=== PATIENT | female | born 1955 | race Caucasian/White ===

== ENCOUNTER 2019-02-22 11:01 | Outpatient (CLI) | payer MEDICAID, SELFPAY ==
--- NOTE | 2019-02-22 10:54 | DI.RAD_ITS ---
SYMPTOM/DIAGNOSIS: HIP AND KNEE PAIN RIGHT KNEE: There is severe narrowing of the medial femoral tibial joint space and periarticular spurring. There is some flattening of the medial femoral condyle. There is mild varus angulation. There is mild spurring at the articular aspect of the patella and a small joint effusion. IMPRESSION: Severe degenerative changes of the medial femoral tibial joint. RIGHT HIP AND PELVIS: There are no prior comparison exams. The hip joint spaces are well maintained. There is mild bilateral acetabular spurring. No joint space calcifications are seen. The SI joints are unremarkable. IMPRESSION: Mild degenerative changes of both hips.
== END 2019-02-22 11:21 ==
PROVIDERS: PCP Internal Medicine; Visit Provider Orthopaedic Surgery
DX: M25.561 Pain in right knee (principal); M25.551 Pain in right hip; M17.11 Unilateral primary osteoarthritis, right knee; M16.0 Bilateral primary osteoarthritis of hip; M25.461 Effusion, right knee
CPT/HCPCS: 73502; 73560

== ENCOUNTER 2019-03-03 10:38 | Outpatient (CLI) | payer MEDICAID, SELFPAY ==
--- NOTE | 2019-03-03 09:54 | W.PREOPHP ---
Assessment and Plan (1) Osteoarthritis: Current visit: No Status: Chronic Plan: Educated patient on surgery covering surgical technique via the use of prosthetic models, recovery process, benefits and risks including but not limited to risk of infection, blood clot, numbness, tingling, damage to soft tissue/blood vessels/nerves in detail. After discussion patient gives verbal understanding of risks and elects to proceed with scheduling surgery. Patient had opportunity to have questions answered to their satisfaction. They will contact office if issues arise. Patient will continue to be scheduled for right total knee replacement with Dr. Brandon. Qualifiers: Laterality: right Osteoarthritis location: knee Osteoarthritis type: unspecified Qualified Code(s): M17.11 - Unilateral primary osteoarthritis, right knee History of Present Illness Narrative: Ms. Gusman is a 63-year-old female presents clinic for preoperative visit for scheduled right total knee replacement with Dr. Brandon on 03/06/2019. Unfortunately, patient is a poor historian and describes her past medical issues with superfluous dramatic details. Patient reports she has been dealing with right knee pain that occurs diffusely around the knee and occasionally underneath her kneecap for many years. Patient decided to seek medical treatment for her knee complaints when she began to develop increased giving out sensation. Patient reports her knee gives out several times daily which cause her fall to the ground. Giving out sensation that occurs with patient walking on flat ground, with twisting motions and when trying to ascend stairs. Following giving out and fall patient reports increased knee discomfort. Due to knee instability patient now has to sit to do dishes and is unable to have any prolonged standing or walking. Patient is trying to manage discomfort with taking Tylenol periodically which provides some pain relief. In addition she reports frequently icing and applying heat to the knee which helps significantly. However, due to the continued instability and discomfort patient sought orthopedic consult. Patient was seen in orthopedic clinic by Dr. Brandon on 02/22/2019 at which time x-rays revealed [id number] articulation and osteophyte formation predominantly along the medial joint aspect. Patient was also noted to have decreased patellofemoral joint space. Due to patient's continued knee instability Dr. Brandon recommend proceeding with surgical intervention. Patient was agreeable and decided to proceed with total knee replacement. Pertinent Surgical Information Patient is a poor historian and is unable to provide further details for numerous reported diagnoses. She does describe several stories which have a dramatic flare to her narration. Patient's chart shows diagnosis of thyroid disorder without additional details provided. Reviewed patient's current medications which do not show thyroid replacement or suppressant drugs. On questioning of thyroid disorder patient states she is continuing to undergo work-up. 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 Patient also states history of a large brain tumor which is treated nonoperatively and without medication. Patient states tumor does not cause her to have any defect and that she sees a neurologist but is unable to recall name or practice. When patient presented to day surgery nurse her daughter endorsed story of brain tumor that is managed conservatively. Again no evidence of diagnosis is present in patient's chart. When further questions are asked regarding patient's numerous surgeries and patient reported diagnosis of brain tumor she is unable to provide additional details. While at day surgery patient and her daughter also stated patient suffered heart attack in 1994 managed with placement of two stent at [facility]. As per patient's daughter she sees a senior commercial loan officer in [place], [place]. Patient has undergone surgeries since reported heart attack in 1994 without any complications. When asked by nurse at Day Surgery patient denies any recurrent chest pain following 1994 but does have a prescription for nitroglycerin if needed. At today's visit patient displays no symptoms of cardiac or pulmonary issues nor does she have any pertinent review of systems. However, due to patient's previous history recommend anesthesia see patient before she leaves the hospital today to determine if they require additional work-up/cardiology notes. Denies past medical history of: stroke, recent angina, COPD, sleep apnea, liver issues, hepatitis, gastrointestinal issues, ulcers, bleeding disorders, anxiety, depression, diabetes, autoimmune disorders Denies prior complications from surgery or anesthesia. Review of Systems Constitutional Denies fever(s), Denies frequent falls and Denies headache(s) Eyes Denies change in vision ENT Denies dizziness, Denies ear discharge, Denies headache(s), Denies epistaxis, Denies nasal discharge and Denies sore throat Cardiovascular Denies chest pain, Denies rapid heart rate, Denies irregular heart rhythm, Denies dyspnea, Denies dyspnea on exertion and Denies slow heart rate Respiratory Denies cough, Denies dyspnea, Denies dyspnea on exertion and Denies wheezing Gastrointestinal Denies abdominal pain, Denies melena, Denies hematochezia, Denies constipation, Denies diarrhea, Denies nausea and Denies vomiting Genitourinary Denies hematuria, Denies dysuria and Denies urinary urgency Musculoskeletal Reports as per HPI, Denies numbness and Denies tingling Neurologic Denies dizziness, Denies frequent falls, Denies headache(s), Denies numbness and Denies tingling Psychiatric Denies anxiety and Denies depression Allergic/Immunologic Denies wheezing PFSH Family History Other CAD (coronary artery disease) Social History Smoking/Tobacco Use Status: Never Alcohol Intake: never Drug use: Never Meds Home Medications Medication Instructions Recorded Confirmed Type albuterol sulfate [Ventolin HFA] 2 puff INHALATION .Q4-6H PRN PRN 03/03/19 03/03/19 History amlodipine 5 mg PO DAILY 03/03/19 03/03/19 History budesonide 0.5 mg INHALATION DAILY PRN 03/03/19 03/03/19 History docusate sodium [Colace] 100 mg PO DAILY 03/03/19 03/03/19 History estradiol [Estrace] 1 g VAGINAL .3 TIMES A WEEK 03/03/19 03/03/19 History hydrocodone-acetaminophen [Alba] 1 tab PO TID 03/03/19 03/03/19 History insulin glargine [Basaglar KwikPen 22 unit SUBCUT DAILY 03/03/19 03/03/19 History U-100 Insulin] linagliptin [Tradjenta] 5 mg PO DAILY 03/03/19 03/03/19 History lisinopril 10 mg PO DAILY 03/03/19 03/03/19 History metoprolol tartrate 50 mg PO DAILY 03/03/19 03/03/19 History pantoprazole [Protonix] 40 mg PO DAILY 03/03/19 03/03/19 History rosuvastatin [Crestor] 40 mg PO DAILY 03/03/19 03/03/19 History sumatriptan succinate 100 mg PO ONCE PRN 03/03/19 03/03/19 History topiramate [Topamax] 25 mg PO BID 03/03/19 03/03/19 History Allergies Allergy/AdvReac Type Severity Reaction Status Date / Time Penicillins Allergy Intermediate Verified 03/03/19 11:02 Sulfa (Sulfonamide Allergy Intermediate Verified 03/03/19 11:02 Antibiotics) tramadol Allergy Intermediate chest Verified 03/03/19 11:02 tightness adhesive tape Allergy Verified 03/03/19 11:02 cefuroxime [From Ceftin] Allergy Verified 03/03/19 11:02 cephalexin [From Keflex] Allergy Skin Rash Verified 03/03/19 11:02 whole body Latex, Natural Rubber Allergy Verified 03/03/19 11:02 metoprolol [From Toprol XL] Allergy Verified 03/03/19 11:02 nitrofurantoin Allergy Verified 03/03/19 11:02 [From Macrodantin] sulfamethoxazole Allergy Verified 03/03/19 11:02 [From Bactrim] trimethoprim [From Bactrim] Allergy Verified 03/03/19 11:02 morphine AdvReac Intermediate vomiting Verified 03/03/19 11:02 cat hair Allergy Uncoded 03/03/19 11:02 Exam Const General: cooperative and no acute distress HENMT Head: normal to inspection and normocephalic Ears: external ears normal General nose exam: external nose normal and no nasal discharge Face and sinus: face symmetric Mouth: oral mucosae normal, lip normal, tongue normal and moist mucous membranes Teeth and gingiva: other (no teeth noted) Throat: posterior oropharynx normal Eyes General: appearance normal, both eyes and all related structures Pupils: PERRL EOM: EOM intact bilaterally Neck Neck: trachea midline Carotids: normal carotid upstroke Lymphatic: no lymphadenopathy noted Resp Effort & Inspection: normal respiratory effort and able to speak in complete sentences Auscultation: clear to auscultation bilaterally, no rales, no rhonchi and no wheezes Cardio Heart Sounds: S1 normal, S2 normal and no murmurs Pulses: radial pulses present bilaterally GI Palpation: soft, no hepatosplenomegaly and nontender Auscultation: normal bowel sounds Skin General skin exam: no rashes or lesions noted Extrem Other: Right knee examination: Skin is intact without signs of erythema, calor, lesions or rash. Tenderness to palpation significantly along medial joint line and along borders of patella.
[2019-03-03 13:15] LABS: Abs Immature Grans 0.02 k/cumm (0.0-0.09); Absolute Basophil Count 0.02 k/cumm (0.0-0.2); Absolute Eosinophil Count 0.24 k/cumm (0.0-0.7); Absolute Lymphocyte Count 2.16 k/cumm (1.2-3.4); Absolute Monocyte Count 0.41 k/cumm (0.11-0.7); Absolute Neutrophil Count 5.86 k/cumm (1.2-6.7); Basophils % 0.2; Eosinophils % 2.8; HCT 35.8 % (36.0-46.0); HGB 11.5 g/dL (12.0-15.5); Immature Grans % 0.2; Lymphocytes % 24.8; Mean Corp. HGB Concentration 32.1 g/dL (32.0-36.0); Mean Corpuscular Hemoglobin 28.3 pg (27.0-33.0); Mean Platelet Volume 12.1 fL (8.0-11.0); Monocytes % 4.7; Neutrophils % 67.3; Platelet Count 192 x1000/uL (130-400); RBC 4.07 m/cumm (4.00-5.20); RBC Distribution Width 15.3 % (11.7-14.6); White Blood Cell Count 8.71 k/cumm (4.4-10.8)
[2019-03-03 14:16] LABS: ALT 20 U/L (12-78); AST 19 U/L (15-37); Albumin 3.9 g/dL (3.4-5.0); Alkaline Phosphatase 106 U/L (46-116); Anion Gap 11.3 mmol/L (3-11); BUN 27 mg/dL (7-18); Bilirubin, Total 0.3 mg/dL (0.2-1.0); CO2 24.7 mmol/L (21.0-32.0); CREATININE 1.49 mg/dL (0.55-1.02); Calcium 9.1 mg/dL (8.5-10.1); Chloride 104 mmol/L (98-107); Estimated GFR 35.12 (mL/min/1.73m2); Glucose 144 mg/dL (70-100); Potassium 4.5 mmol/L (3.5-5.1); Sodium 140 mmol/L (136-145); Total Protein 7.7 g/dL (6.4-8.2)
== END 2019-03-03 10:58 ==
PROVIDERS: PCP Internal Medicine; Visit Provider Orthopaedic Surgery
DX: M25.561 Pain in right knee (principal); M17.11 Unilateral primary osteoarthritis, right knee; Z01.812 Encounter for preprocedural laboratory examination; Z01.818 Encounter for other preprocedural examination
CPT/HCPCS: 36415; 80053; NC; 85025

== ENCOUNTER 2019-03-06 05:56 | Inpatient (IN) | payer MEDICAID, SELFPAY ==
[2019-03-06] VITALS (17 sets, daily range): BP systolic 72–149; BP diastolic 41–76; PULSE 54–77; RESP 13–22; TEMP 35.8–36.6; O2SAT 91–99
[2019-03-06] MEDS: Lactated Ringers 1,000 ML 80 ML IV ×2 (07:02→10:43)
[2019-03-06] MEDS: Bupivacaine 0.25% Pres-Free 30 ML VIAL (07:18)
[2019-03-06] MEDS: ceFAZolin 2 GM/50 ML BAG IVPB (07:35)
[2019-03-06] MEDS: Hydrogen Peroxide 3% 480 ML BTL (08:07)
[2019-03-06] MEDS: ePHEDrine 50 MG/ML VIAL (10:07)
--- NOTE | 2019-03-06 10:26 | DI.RAD_ITS ---
SYMPTOM/DIAGNOSIS: S/P TOTAL KNEE, CHECK COMPONENTS RIGHT KNEE: Two views were obtained and show a total knee joint replacement in position. The components appear well seated. No other significant bony abnormality is seen.
[2019-03-06] MEDS: oxyCODONE-CR 10 MG TABCR PO (12:11)
--- NOTE | 2019-03-06 13:47 | IN_ITS ---
Date of service: 03/06/19 Time of Service: 13:05 PT Notes Inpatient Physical Therapy Evaluation Date: March 06, 2019 Referring Doctor: Dr. Brandon PT Orders: PT CONSULT: ?Mobilize post-op (R) TKR. Get OOB ambulating in room this afternoon. Precautions: WBAT (R) LE Diagnosis: Post-op (R) TKR 03/06/2019 PMHX: Thyroid dysfunction, h/o brain tumor per pt report, NV 1994 s/p stent x2, DM, PTSD, GERD, CKD, HTN, hyperlipidemia Social History/Home Situation: Lives in mobile home, 3 [address] with rail Current Functional Limitations: Need for assistance with all transfers and ambulation task performance using FWW Equipment Owned/DME: Walkers, Cane Subjective: Pt states that she was expecting PT and is ready to begin therapy. Upon arrival, pt denies pain, discomfort, or lightheadedness. Pt admits nausea and vomiting with past surgeries but is not currently experiencing those sxs. Pt is aware that her (R) LE feels heavy and weak compared to (L) LE and reports some paresthesia into (R) foot. Objective: General Observation: Upon PT arrival, pt was lying in bed while watching TV. Pt was pleasant and highly motivated to begin functional activity. (R) knee immobilizer over Henley dressing. Tobias catheter in place. IV in RUE. Mental Status: A&O x3. Pain: 0/10 at beginning, 1-2/10 at end of session Vital Signs: BP 131/75, HR 67 bpm, 97% SpO2 ROM: Right Upper Extremity: WNL Left Upper Extremity: WNL Right Lower Extremity: 0 deg extension with immobilizer over Henley dressing Left Lower Extremity: WNL Strength: Right Upper Extremity: WNL Left Upper Extremity: WNL Right Lower Extremity: Functionally, patient is able to perform active SLR x 10 with knee immobilizer and Henley wrap in place. Hip flexors: 3+/5. Ankle DF/PF: 5/5 Left Lower Extremity: Hip flexors: 5/5, Hip abd: 5:5, Knee flex/ext: 4+5, Ankle DF/PF: 5/5 Sensation: Intact distally Bed Mobility/Transfers: Supine to sit: Supervision Sit to supine: Supervision Sit to stand: CGA Stand to sit: CGA Bed to chair: CGA, WW Chair to bed: Not assessed at this session Gait: Pt is able to ambulate 6? exhibiting step-to gait pattern with 4WW, CGA, and IV pole management. Pt reported 1-2/10 along (R) LE after gait but resolved with rest. Denies nausea and headache. Balance: Static Sitting: NL Dynamic Sitting: Good Static Standing: Fair Dynamic Standing: Fair Special Tests: Mobility Limitations Standardized Measure [facility] AM-PAC 6 clicks Basic Mobility Inpatient Short Form: Raw Score: 15 CMS Score: 56.46% deficit Informed Consent/Education: Patient instructed in purpose of PT consult and plan of care. Pt was trained and instructed with seated level room exercises to be performed throughout the rest of today in order to minimize pain, swelling, and strength deficit: (R) straight leg raise x10, (R) quad sets x10, and (R) ankle pumping x20. Assessment: Patient is a 63 year old female referred to physical therapy services status-post (R) TKR 03/06/2019. Patient presents with clinical signs and symptoms consistent with admitting diagnosis and post-op status as demonstrated by the following impairment level findings: decreased (R) LE strength, impaired static and dynamic standing balance, impaired endurance, ROM limitations of (R) hip and knee joints . Impairments are contributing to the following functional limitations: mobility limitations, gait instability, muscular weakness, and impaired neuromuscular control of (R) LE, , and unable to negotiate stairs. 56.46% deficit of AMPAC score. Patient is assessed as a Moderate 45258 complexity based on the following: History: Involved PMH including thyroid transfer, brain tumor unconfirmed by neuro at this date, NV s/p stent x2, D, PTSD, GERD, CKD, HTN, and hyperlipidemia. Examination: See above impairments and functional limitations. Presentation: Evolving Decision Makin Moderate Complexity Goals: Goals x1 week 1. Supine-Sit Independent 2. Sit-Supine Independent 3. Sit-Stand Independent 4. Stand-Sit Independent 5. Bed-Chair Independent with use of FWW 6. Chair-Bed Independent with use of FWW 7. Gait: Independent on level surface with use of least restrictive device for at least 200 feet without report of pain. 8. Stairs: Independent stair negotiation while holding 1 rail for at least 3 steps without report of pain. 9. Independent with home exercise program 10. Balance: Good static and dynamic standing balance Plan of Care/Treatment Plan: 1-2x/day, 7 days/week x 1 week. Initiate Physical Therapy intervention for strengthening, bed mobility, transfers, gait, stairs, balance training, use of assistive device. DISCHARGE RECOMMENDATIONS: Pt will benefit from outpatient or home health PT services following inpatient d/c in order to regain independent prior level of function, assess home safely, implement functional maintenance program for strengthening and fall reduction. No equipment needs anticipated, as patient owns a FWW. TREATMENT CODE/TIME: 1:05pm? 1:30pm [id number] x1, [id number] x1
[2019-03-06] MEDS: POTASSIUM CHLORIDE/0.9% NACL 1,000 ML 125 MEQ IV ×2 (14:01→22:13)
[2019-03-06] MEDS: Docusate Sodium 100 MG CAP PO ×2 (14:41→19:28)
[2019-03-06] MEDS: ceFAZolin 1 GM/50 ML BAG IVPB ×2 (14:42→19:26)
[2019-03-06] MEDS: Normal Saline Flush 10 ML SYR IV ×2 (14:43→19:26)
[2019-03-06] MEDS: HYDROmorphone 2 MG/ML VIAL 1 MG IVP (14:44)
[2019-03-06] MEDS: Ketorolac 30 MG/ML VIAL IVP ×2 (15:16→19:27)
--- NOTE | 2019-03-06 16:18 | ROE_ITS ---
DATE OF PROCEDURE: March 06, 2019 PREOPERATIVE DIAGNOSIS: Osteoarthritis, right knee. POSTOPERATIVE DIAGNOSIS: Same. PROCEDURE: Right total knee arthroplasty. COMPONENTS USED: 1. Size 2 femoral component, posterior cruciate-retaining. 2. Size 2 tibial component. 3. 32 mm tri-pronged patella. 4. Size 2, 12.5 posterior cruciate-retaining polyethylene insert. ANESTHESIA: General with a femoral nerve block, Lucia Durand CRNA SURGEON: Tristan Brandon M.D. PRODUCT TESTER: Mac Echeverria INDICATIONS: This is a 63-year-old white female with a several year history of pain in her right kne e. Over the last year her pain has resulted in multiple giving way episodes, at least one a day wher e she has fallen to the ground. X-rays confirmed osteoarthritis of the knee. Total knee replacement was recommended to alleviate her pain, restore stability to her knee and to prevent further giving w ay episodes. The risks and complications of the procedure were explained to the patient in detail pr eoperatively. PROCEDURE: The patient was taken to the Operating Room on 03/06/19. She was placed supine on the oper ating table. A femoral nerve block was administered and then a general anesthetic was administered. A proximal tourniquet was applied to the right thigh and the right lower extremity was prepped from toes to tourniquet and draped free in the usual sterile fashion. Under proximal tourniquet control, an anterior midline incision was made beginning at the tibial tube rcle and extending proximal to the patella about four inches. The incision was carried down to the f ascia. A medial parapatellar capsular incision was made and was extended proximally and longitudina lly in line with the quad tendon. A complete medial subperiosteal release was performed to help alfredo ect the varus deformity. The patella was everted and the knee was hyperflexed. Medial and lateral m eniscectomies were performed and the anterior cruciate ligament was excised. The posterior cruciate ligament was recessed. The distal femur was then resected using intramedullary alignment guides and jigs. She was found to require a size 2 femoral component. Holes for the lugs of the femoral compon ent were then drilled using the trial component. The proximal tibia was resected using extramedullar y alignment guides and jigs. A size 2 tibial component was felt to be the proper size. The tibial t rial was pinned into place and then the keel for the tibial component was then reamed out in proper r otation alignment. Finally the patella was resected using the patellar resection guide. 15 mm thick ness of the patella was left for implantation of a patellar component. Using the drill guide for the tri-pronged patella, 32 mm, the holes were drilled in proper rotation alignment. The proximal tibia was prepared for cementing with pulse irrigation lavage of saline solution and dry ing with peroxide-soaked strip sponges. One batch of gentamicin-impregnated methylmethacrylate was v acuum-mixed and hand-packed onto the prepared tibia. Cement was then placed on the undersurface of t he tibial component and the tibial component was impacted into place with the impactor and mallet. T he tibial component was further pressurized using the trial components and extending the knee. Exces s cement was trimmed from the margins of the tibial component using a plastic cement removal tool whi le the cement was still soft. When the first batch of methylmethacrylate had cured, the trial compon ents were removed. The distal femur and patella were then prepared for cementing with pulse irrigati on lavage of saline solution and drying with peroxide-soaked strip sponges. Another batch of gentami ravinder-impregnated methylmethacrylate was vacuum-mixed and hand-packed onto the prepared femur and brennan la. Cement was then placed on the posterior surfaces of the femoral component and the patellar compo nent. The femoral component was impacted into place with the impactor and mallet and pressurized usi ng the tibial insert and extending the knee. The patellar component was inserted and pressurized usi ng the patellar clamp. Excess cement was trimmed from the margins of the patella and femoral compone nts using the plastic cement removal tool while the cement was still soft. When the second batch of methylmethacrylate had cured, the trial insert was removed. The posterior recesses were checked. An y bone or cement debris was removed at this point. Trial reduction showed a 12.5 thick insert provid ed the best stability through flexion while still allowing full extension of the knee. The actual co mponent, 12.5, size 2 posterior cruciate-retaining rotating platform was inserted into the tibial com ponent and then reduced onto the femoral condyles. Patellar tracking was checked using the rule-of-n o-thumb. The patella tracked anatomically. The posterior capsule was infiltrated with 0.5% Marcaine with an epinephrine solution and this was then carried into the anterior capsule. The subcutaneous tissue was infiltrated with 0.5% Marcaine with an epinephrine solution for postoperative analgesia. Betadine and saline solution was instilled into the knee and allowed to sit for sixty seconds before suctioning. The knee was flexed over soft goods and closure was begun. The medial parapatellar capsular incision and the incision in the quadriceps tendon were repaired wit h interrupted [id number] sutures of #1 Vicryl suture material. The subcu was approximated with interrupted #2-0 Vicryl sutures and the skin edges were approximated with skin rigo. Sterile dres sings were applied followed by a long-leg Henley compressive dressing. The tourniquet was released at this point and a knee immobilizer splint was placed over the compression dressing to maintain the kn ee in extension. The patient received one gram of Tranexamic acid prior to tourniquet inflation and received a second gram of Tranexamic acid IV after the tourniquet was deflated. The patient's anesthesia was reversed without complications. She was discharged to recovery room in good condition.
--- NOTE | 2019-03-06 17:40 | PHARADMIT ---
Admission Pharmacy Clinical Review recommended dose change of ketorolac to 15mg per dose instead of 30mg. MD decided to keep the 30mg dose Code Status Full Code Current Weight 79 kg Renally Cleared and Narrow Therapeutic Index Meds QTc Value / Action Taken BP Control, Fever Electrolytes reviewed DVT Prophylaxis Opiate Usage / Scheduled Bowel Regimen Ordered Plt/SCr for Heparin / Enoxaparin INR for Warfarin H/H stable, WBC/Bands Antibiotic appropriateness Cultures and Sensitivities Surgical ABX d/c within 24 hr DM control / Insulin Dosing Heart Failure (Check EF%) (KIRAN's, B-Block, Diuretics) IV to PO Switch Home Meds Reviewed Home Meds Not Ordered Comments
[2019-03-06] MEDS: Topiramate 25 MG TAB PO (19:27)
[2019-03-06] MEDS: ROSUVASTATIN 20 MG TAB 40 MG PO (19:27)
[2019-03-06] MEDS: Insulin Glargine 300 UNITS/3 ML PEN 22 UNITS SC (22:06)
[2019-03-07] VITALS (8 sets, daily range): BP systolic 96–139; BP diastolic 54–80; PULSE 65–72; RESP 16–20; TEMP 36.5–37; O2SAT 97–99
[2019-03-07] MEDS: oxyCODONE-CR 10 MG TABCR PO ×3 (00:31→23:38)
[2019-03-07] MEDS: Normal Saline Flush 10 ML SYR IV (01:48)
[2019-03-07] MEDS: Ketorolac 30 MG/ML VIAL IVP ×4 (01:48→20:16)
[2019-03-07] MEDS: ceFAZolin 1 GM/50 ML BAG IVPB ×2 (01:49→07:30)
[2019-03-07] MEDS: POTASSIUM CHLORIDE/0.9% NACL 1,000 ML 125 MEQ IV (06:31)
[2019-03-07 07:02] LABS: HCT 30.8 % (36.0-46.0); HGB 9.7 g/dL (12.0-15.5); Mean Corp. HGB Concentration 31.5 g/dL (32.0-36.0); Mean Corpuscular Hemoglobin 28.1 pg (27.0-33.0); Mean Corpuscular Volume 89.3 fL (80-95); Mean Platelet Volume 12.1 fL (8.0-11.0); Platelet Count 140 x1000/uL (130-400); RBC 3.45 m/cumm (4.00-5.20); RBC Distribution Width 15.4 % (11.7-14.6); White Blood Cell Count 10.09 k/cumm (4.4-10.8)
[2019-03-07] MEDS: Pantoprazole 40 MG TABCR PO (07:35)
[2019-03-07] MEDS: Topiramate 25 MG TAB PO ×2 (07:35→20:17)
[2019-03-07] MEDS: Lisinopril 10 MG TAB PO (07:35)
[2019-03-07] MEDS: Docusate Sodium 100 MG CAP PO ×3 (07:35→20:17)
[2019-03-07] MEDS: Metoprolol 50 MG TAB PO (07:36)
[2019-03-07] MEDS: amLODIPine 5 MG TAB PO (07:36)
[2019-03-07] MEDS: Normal Saline Flush 10 ML SYR (08:04)
--- NOTE | 2019-03-07 08:12 | PDOC.CMIN ---
- If Service Date Differs Date of service: 03/07/19 Time of Service: 08:12 Care Management Initial Assess REASON FOR HOSPITALIZATION:: Right total knee arthroplasty PAST MEDICAL HISTORY/PAST SURGICAL HISTORY:: Thyroid disorder, brain tumor, heart attack with 2 stents placed at [facility] in 1994, chronic kidney disease, hyperlipidemia, anemia, asthma, DM, hypertension, obesity,PTSD PREVIOUS FUNCTIONAL STATUS/SOCIAL/FAMILY SUPPORTS:: Mirna lives in a mobile home in [place], [place] with her boyfriend Wilfredo Walker. She has been disabled for a very long time from an accident and receives welfare, and social security. She has 3 steps to get into the home. Her daughter Marli and boyfriend Wilfredo will help with care upon discharge.She is independent with ADLs. CURRENT FUNCTIONAL STATUS:: Mirna was sitting up in bed when CM came to visit. She was guarded in her responses to questions. Mirna states that she has plenty of help and will get PT in either [facility] or some other outpatient facility. Her boyfriend or other friend or relative will provide transportation. ADVANCE DIRECTIVES:: None on file at [facility] Has patient been provided with information about the portal?: No (not interested) Did the patient sign up for the portal?: No CODE STATUS:: Full Code INSURANCE COVERAGE / FINANCIAL ISSUES:: [employer] [place], [place] CURRENT HOME/COMMUNITY SERVICES/EQUIPMENT:: None in use, although Mirna does have 6 walkers at home! PRIMARY CARE PHYSICIAN:: Daryl Key POTENTIAL DISCHARGE NEEDS:: Mirna will need PT and folow up with her orthopedic surgeon and PCP and discharge plan of care. PATIENT/FAMILY EDUCATION NEEDS:: Discharge plan, limitations, follow up plan of care, Ask Me Three. TRANSPORTATION:: Via private automobile with friends or family when ready. PLAN:: Mirna is receiving PT and scheduled po medicine for pain control. She will likely be discharged home with outpatient PT. CM will continue to provide support to patient, family, care team and discharge plan of care.
--- NOTE | 2019-03-07 08:19 | INITIAL_ITS ---
- If Service Date Differs Date of service: 03/07/19 Time of Service: 08:12 Care Management Initial Assess REASON FOR HOSPITALIZATION:: Right total knee arthroplasty PAST MEDICAL HISTORY/PAST SURGICAL HISTORY:: Thyroid disorder, brain tumor, heart attack with 2 stents placed at [facility] in 1994, chronic kidney disease, hyperlipidemia, anemia, asthma, DM, hypertension, obesity,PTSD PREVIOUS FUNCTIONAL STATUS/SOCIAL/FAMILY SUPPORTS:: Mirna lives in a mobile home in [place], [place] with her boyfriend Wilfredo Walker. She has been disabled for a very long time from an accident and receives welfare, and social security. She has 3 steps to get into the home. Her daughter Marli and boyfriend Wilfredo will help with care upon discharge.She is independent with ADLs. CURRENT FUNCTIONAL STATUS:: Mirna was sitting up in bed when CM came to visit. She was guarded in her responses to questions. Mirna states that she has plenty of help and will get PT in either [place] or some other outpatient facility. Her boyfriend or other friend or relative will provide transportation. ADVANCE DIRECTIVES:: None on file at [facility] Has patient been provided with information about the portal?: No (not interested) Did the patient sign up for the portal?: No CODE STATUS:: Full Code INSURANCE COVERAGE / FINANCIAL ISSUES:: [employer] [place], [place] CURRENT HOME/COMMUNITY SERVICES/EQUIPMENT:: None in use, although Mirna does have 6 walkers at home! PRIMARY CARE PHYSICIAN:: Daryl Key POTENTIAL DISCHARGE NEEDS:: Mirna will need PT and folow up with her orthopedic surgeon and PCP and discharge plan of care. PATIENT/FAMILY EDUCATION NEEDS:: Discharge plan, limitations, follow up plan of care, Ask Me Three. TRANSPORTATION:: Via private automobile with friends or family when ready. PLAN:: Mirna is receiving PT and scheduled po medicine for pain control. She will likely be discharged home with outpatient PT. CM will continue to provide support to patient, family, care team and discharge plan of care.
--- NOTE | 2019-03-07 08:30 | PT.INTREAT ---
Date of service: 03/07/19 Time of Service: 08:30 PT Notes Inpatient Physical Therapy Treatment Note [facility] Date: 03/07/19 PRECAUTIONS: WBAT on R SUBJECTIVE: Mirna states that she is not having any pain this morning. OBJECTIVE: PAIN: No c/o pain BED MOBILITY/TRANSFERS Supine-sit: I Sit-stand: SBA in a.m.; S in p.m. Stand-sit: SBA in a.m.; S in p.m. GAIT Assistive Device: FWW Weight bearing: WBAT on R Assist: SBA Distance: 175' in both a.m. and p.m. THEREX: Patient completed a LE strengthening and stabilization program, in a seated position in a.m. and a supine position in p.m., as per flow sheet. She was able to perform active SLR x10 without Henley dressing or K.I. in place. Patient's R knee AAROM is -5-91 degrees. STAIRS: Up/down 3x4 and 2x6 using 1 rail/SPC and a step-to pattern with CGA. Patient requires cueing for improved safety awareness and technique for safety. REMOVAL OF HENLEY: Incision area clean, dry, free of abnormal redness and blistering. 25 rigo intact. Replaced with Xeroform gauze, 4x4 gauze, tape, thigh-high PAULINA stocking. ASSESSMENT: Patient tolerated sessions well with minimal complaint of discomfort in posterior R knee. She was able to tolerate a progression in gait distance with FWW support and SBA utilizing step-through pattern. She would benefit from continued gait and transfer training as well as strengthening for improved mobility. PLAN: Continue with PT's POC TREATMENT CODE/TIME: Session 1: 20 minutes; 68621 Session 2: 35 minutes; [id number], [id number]
[2019-03-07] MEDS: Enoxaparin 30 MG/0.3 ML SYR SC (09:37)
--- NOTE | 2019-03-07 13:51 | W.PM.PROGNOT ---
Date of Service Date of service: 03/07/19 Time of Service: 13:51 Assessment and Plan (1) Status post total right knee replacement: Current visit: Yes Status: Acute Assessment: Stable postop day #1 right total knee replacement. She has not started to bend her knee yet and I do not know what her quad control is so far. I think it might be a little premature to send her home today. Plan: We will DC her IV fluids. We will have physical therapy remove her Henley dressing and start some active flexion this afternoon. We will place a long-leg Emir stocking on the right. We will start using a Cryo/Cuff to the right knee 4 times a day for an hour each time. If she does well tonight and tomorrow morning would send her home. Subjective Interval history since last seen: She feels really really good. She wants to know when she can go home. Pain is minimal in her right knee. She has not had to take any additional narcotic injections. Exam Narrative Exam Narrative: She is afebrile vital signs are stable. She is eating and drinking well. Hemoglobin is 9.7 g this morning. Her Tobias has been DC a few hours ago. She has not voided yet. She was able to transfer without any significant assist. She walked all around the second floor nursing unit. She has good active motion of her right foot and ankle and toes. She has good sensation and circulation to her right toes. Objective Objective Clinical Data: Abnormal lab results 03/07/19 Range/Units 06:30 RBC 3.45 L (4.00-5.20) m/cumm Hgb 9.7 L (12.0-15.5) g/dL Hct 30.8 L (36.0-46.0) % MCHC 31.5 L (32.0-36.0) g/dL RDW 15.4 H (11.7-14.6) % MPV 12.1 H (8.0-11.0) fL Vital Signs Temperature 36.9 C 03/07/19 11:37 Temperature Source Tympanic 03/07/19 11:37 Pulse 65 03/07/19 11:37 Pulse Rhythm Regular 03/07/19 07:21 Respiratory Rate 18 03/07/19 11:37 Respiratory Effort Non-Labored 03/07/19 07:21 Respiratory Depth Normal 03/07/19 07:21 Respiratory Pattern Normal 03/07/19 07:21 Blood Pressure 114/58 L 03/07/19 11:37 Pulse Oximetry 97 03/07/19 11:37 Respiratory End-tidal CO2 34 03/06/19 10:44 Oxygen Delivery Method Room Air 03/07/19 11:37 Oxygen Flow Rate 0 03/07/19 11:37 Pain Level 5 03/07/19 13:43 Comment 03/07/19 03:38 Intake & Output 03/06/19 03/07/19 03/07/19 23:59 11:59 23:59 Intake Total 1920 / 3017.333 2276.667 / 2756.667 480 / 2756.667 Output Total 700 / 1200 1650 / 1650 Balance 1220 / 1817.333 626.667 / 1106.667 480 / 1106.667 Intake: IV 1330 / 2427.333 1436.667 / 1436.667 Oral 590 / 590 840 / 1320 480 / 1320 Output: Urine 700 / 1200 1650 / 1650 Other: Urine Color Pale Yellow Yellow Urine Appearance Clear Clear Laboratory Results WBC 10.09 k/cumm (4.4-10.8) 03/07/19 06:30 RBC 3.45 m/cumm (4.00-5.20) L 03/07/19 06:30 Hgb 9.7 g/dL (12.0-15.5) L 03/07/19 06:30 Hct 30.8 % (36.0-46.0) L 03/07/19 06:30 MCV 89.3 fL (80-95) 03/07/19 06:30 MCH 28.1 pg (27.0-33.0) 03/07/19 06:30 MCHC 31.5 g/dL (32.0-36.0) L 03/07/19 06:30 RDW 15.4 % (11.7-14.6) H 03/07/19 06:30 Plt Count 140 x1000/uL (130-400) 03/07/19 06:30 MPV 12.1 fL (8.0-11.0) H 03/07/19 06:30
[2019-03-07] MEDS: ROSUVASTATIN 20 MG TAB 40 MG PO (20:16)
[2019-03-07] MEDS: Insulin Glargine 300 UNITS/3 ML PEN 22 UNITS SC (22:16)
[2019-03-08] MEDS: Ketorolac 30 MG/ML VIAL IVP (01:36)
[2019-03-08 04:03] VITALS: BP 99/64; PULSE 71; RESP 18; TEMP 37; O2SAT 95
[2019-03-08 06:57] LABS: HCT 30.1 % (36.0-46.0); HGB 9.4 g/dL (12.0-15.5); Mean Corp. HGB Concentration 31.2 g/dL (32.0-36.0); Mean Corpuscular Hemoglobin 27.9 pg (27.0-33.0); Mean Corpuscular Volume 89.3 fL (80-95); Mean Platelet Volume 12.3 fL (8.0-11.0); Platelet Count 142 x1000/uL (130-400); RBC 3.37 m/cumm (4.00-5.20); RBC Distribution Width 15.6 % (11.7-14.6); White Blood Cell Count 10.31 k/cumm (4.4-10.8)
[2019-03-08 07:42] VITALS: BP 102/56; PULSE 72; RESP 15; TEMP 37; O2SAT 96
[2019-03-08] MEDS: Pantoprazole 40 MG TABCR PO (09:19)
[2019-03-08] MEDS: Metoprolol 50 MG TAB PO (09:20)
[2019-03-08] MEDS: Topiramate 25 MG TAB PO (09:20)
[2019-03-08] MEDS: Docusate Sodium 100 MG CAP PO (09:21)
[2019-03-08] MEDS: amLODIPine 5 MG TAB PO (09:21)
[2019-03-08] MEDS: Lisinopril 10 MG TAB PO (09:21)
[2019-03-08] MEDS: Enoxaparin 30 MG/0.3 ML SYR SC (09:22)
[2019-03-08 09:45] VITALS: O2SAT 98
--- NOTE | 2019-03-08 10:27 | PT.INTREAT ---
Date of service: 03/08/19 Time of Service: 10:27 PT Notes Inpatient Physical Therapy Treatment Note [facility] Date: 03/08/19 PRECAUTIONS: WBAT on R SUBJECTIVE: Mirna states that she is not having any pain this morning and that she is ready to go home. She reports that she was performing her exercises independently throughout the night. OBJECTIVE: PAIN: No c/o pain BED MOBILITY/TRANSFERS Supine-sit: I with HOB flat Sit-supine: I with HOB flat Sit-stand: I Stand-sit: I GAIT Assistive Device: FWW Weight bearing: WBAT on R Assist: S Distance: 175' THEREX: Patient completed a LE strengthening and stabilization program, in a supine position, as per flow sheet. She was able to perform active SLR x10. STAIRS: Up/down 3x4 and 2x6 using 1 rail/SPC and a step-to pattern with supervision ASSESSMENT: Patient tolerated sessions well without c/o pain. She was able to demonstrate steady gait pattern and pacing. She would benefit from continued gait and transfer training as well as strengthening for improved mobility. PLAN: Continue with PT's POC TREATMENT CODE/TIME: 25 minutes; [id number], [id number]
[2019-03-08 11:37] VITALS: BP 126/75; PULSE 72; RESP 16; TEMP 37.3; O2SAT 99
--- NOTE | 2019-03-08 11:52 | PT.INDS ---
Date of service: 03/08/19 Time of Service: 11:00 PT Notes Date: March 08, 2019 Referring Doctor: Dr. Brandon PT Orders: PT CONSULT: ?Mobilize post-op (R) TKR. Get OOB ambulating in room this afternoon. Precautions: WBAT (R) LE Treatment Dates: 03/06/2019 - 03/08/2019 Diagnosis: Post-op (R) TKR 03/06/2019 PMHX: Thyroid dysfunction, h/o brain tumor per pt report, [place] 1994 s/p stent x2, DM, PTSD, GERD, CKD, HTN, hyperlipidemia Social History/Home Situation: Lives in mobile home, 3 CAPRI with rail. Lives with multiple family members who can assist upon return home. Current Functional Limitations: Requires FWW for ambulation task performance Equipment Owned/DME: Walkers, Cane Subjective: Pt is ready to return home from inpatient stay. She states that she's feeling great and has been keeping up with her exercises. Pt reports that she has plenty of family at home that will be present to assist if needed. Objective: General Observation: Laying in bed with cryocuff on (R) knee. Mental Status: A&O x3. Pain: 0/10 ROM: Right Upper Extremity: WNL Left Upper Extremity: WNL Right Lower Extremity: AROM -4 -> 92 deg knee flexion, PROM -4 -> 98 deg flexion Left Lower Extremity: WNL Strength: Right Upper Extremity: WNL Left Upper Extremity: WNL Right Lower Extremity: Functionally, patient is able to perform active SLR x 10. Hip flexors: 4-/5. Knee flex and ext: 3+/5. Ankle DF/PF: 5/5 Left Lower Extremity: Hip flexors: 5/5, Hip abd: 5:5, Knee flex/ext: 4+5, Ankle DF/PF: 5/5 Sensation: Intact distally Bed Mobility/Transfers: Independent Supine to sit: Independent Sit to supine: Independent Sit to stand: Independent Stand to sit: Independent Bed to chair: Mod Independent with FWW Chair to bed: Independent with FWW Gait: Pt is able to ambulate up to 175' exhibiting step-to gait pattern with FWW and supervision. Pt denies severe pain and does not experience dizziness or nausea Balance: Static Sitting: NL Dynamic Sitting: NL Static Standing: Good Dynamic Standing: Fair - Good Special Tests: Mobility Limitations Standardized Measure [facility] AM-PAC 6 clicks Basic Mobility Inpatient Short Form: Raw Score: 24 CMS Score: 0% deficit Assessment: Patient is a 63 year old female referred to physical therapy services status-post (R) TKR 03/06/2019. Since surgery on 03/06/2019, pt has participated in 5 PT sessions over 3 days. Pt has ambulated 175' over level surface with supervision and FWW and pt was able to negotiate 3x4 and 2x6 stairs in PT clinic with 1 handrail and supervision. Patient has showed significant improvement in functional activity tolerance toward walking and strengthening since beginning PT. She is now appropriate for D/C from PT in acute care setting, with recommendation of PT via services. Goals: Goals x1 week 1. Supine-Sit Independent (Met) 2. Sit-Supine Independent (Met) 3. Sit-Stand Independent (Met) 4. Stand-Sit Independent (Met) 5. Bed-Chair Independent with use of FWW (Met) 6. Chair-Bed Independent with use of FWW (Met) 7. Gait: Independent on level surface with use of least restrictive device for at least 200 feet without report of pain. (Progressing towards) 8. Stairs: Independent stair negotiation while holding 1 rail for at least 3 steps without report of pain. (Progressing towards) 9. Independent with home exercise program (Met) 10. Balance: Good static and dynamic standing balance (Met) Plan of Care/Treatment Plan: Pt is appropriate to be d/c from inpatient PT as demonstrated by increase in (R) knee activity tolerance, strength, control of pain levels, and independence with bed mobility, transfers, and gait. Pt met 8/10 goals and is progressing towards the remaining 11/13. DISCHARGE RECOMMENDATIONS: Pt will benefit from outpatient or home health PT services following inpatient d/c in order to regain independent prior level of function, assess home safely, implement functional maintenance program for strengthening and fall reduction. Pt expressed desire for home health PT services since transportation and access is currently limited for outpatient PT at this time. No equipment needs anticipated, as patient owns a FWW. TREATMENT CODE/TIME: 11:00 - 11:20 am [id number] x1 LUIGI Cramer, under supervision of Shannan Zavala, PT, DPT [facility]
--- NOTE | 2019-03-08 12:12 | INDS_ITS ---
Date of service: 03/08/19 Time of Service: 11:00 PT Notes Date: March 08, 2019 Referring Doctor: Dr. Brandon PT Orders: PT CONSULT: ?Mobilize post-op (R) TKR. Get OOB ambulating in room this afternoon. Precautions: WBAT (R) LE Treatment Dates: 03/06/2019 - 03/08/2019 Diagnosis: Post-op (R) TKR 03/06/2019 PMHX: Thyroid dysfunction, h/o brain tumor per pt report, [place] 1994 s/p stent x2, DM, PTSD, GERD, CKD, HTN, hyperlipidemia Social History/Home Situation: Lives in mobile home, 3 [address] with rail. Lives with multiple family members who can assist upon return home. Current Functional Limitations: Requires FWW for ambulation task performance Equipment Owned/DME: Walkers, Cane Subjective: Pt is ready to return home from inpatient stay. She states that she's feeling great and has been keeping up with her exercises. Pt reports that she has plenty of family at home that will be present to assist if needed. Objective: General Observation: Laying in bed with cryocuff on (R) knee. Mental Status: A&O x3. Pain: 0/10 ROM: Right Upper Extremity: WNL Left Upper Extremity: WNL Right Lower Extremity: AROM -4 -> 92 deg knee flexion, PROM -4 -> 98 deg flexion Left Lower Extremity: WNL Strength: Right Upper Extremity: WNL Left Upper Extremity: WNL Right Lower Extremity: Functionally, patient is able to perform active SLR x 10. Hip flexors: 4-/5. Knee flex and ext: 3+/5. Ankle DF/PF: 5/5 Left Lower Extremity: Hip flexors: 5/5, Hip abd: 5:5, Knee flex/ext: 4+5, Ankle DF/PF: 5/5 Sensation: Intact distally Bed Mobility/Transfers: Independent Supine to sit: Independent Sit to supine: Independent Sit to stand: Independent Stand to sit: Independent Bed to chair: Mod Independent with FWW Chair to bed: Independent with FWW Gait: Pt is able to ambulate up to 175' exhibiting step-to gait pattern with FWW and supervision. Pt denies severe pain and does not experience dizziness or nausea Balance: Static Sitting: NL Dynamic Sitting: NL Static Standing: Good Dynamic Standing: Fair - Good Special Tests: Mobility Limitations Standardized Measure [facility] AM-PAC 6 clicks Basic Mobility Inpatient Short Form: Raw Score: 24 CMS Score: 0% deficit Assessment: Patient is a 63 year old female referred to physical therapy services status-post (R) TKR 03/06/2019. Since surgery on 03/06/2019, pt has pa rticipated in 5 PT sessions over 3 days. Pt has ambulated 175' over level surface with supervision and FWW and pt was able to negotiate 3x4 and 2x6 stairs in PT clinic with 1 handrail and supervision. Patient has showed significant improvement in functional activity tolerance toward walking and strengthening since beginning PT. She is now appropriate for D/C from PT in acute care setting, with recommendation of PT via services. Goals: Goals x1 week 1. Supine-Sit Independent (Met) 2. Sit-Supine Independent (Met) 3. Sit-Stand Independent (Met) 4. Stand-Sit Independent (Met) 5. Bed-Chair Independent with use of FWW (Met) 6. Chair-Bed Independent with use of FWW (Met) 7. Gait: Independent on level surface with use of least restrictive device for at least 200 feet without report of pain. (Progressing towards) 8. Stairs: Independent stair negotiation while holding 1 rail for at least 3 steps without report of pain. (Progressing towards) 9. Independent with home exercise program (Met) 10. Balance: Good static and dynamic standing balance (Met) Plan of Care/Treatment Plan: Pt is appropriate to be d/c from inpatient PT as demonstrated by increase in (R) knee activity tolerance, strength, control of pain levels, and independence with bed mobility, transfers, and gait. Pt met 8/10 goals and is progressing towards the remaining 210. DISCHARGE RECOMMENDATIONS: Pt will benefit from outpatient or home health PT services following inpatient d/c in order to regain independent prior level of function, assess home safely, implement functional maintenance program for strengthening and fall reduction. Pt expressed desire for home health PT services since transportation and access is currently limited for outpatient PT at this time. No equipment needs anticipated, as patient owns a FWW. TREATMENT CODE/TIME: 11:00 - 11:20 am [id number] x1 LUIGI Cramer, under supervision of Shannan Zavala, PT, DPT [facility]
[2019-03-08] MEDS: oxyCODONE-CR 10 MG TABCR PO (12:20)
--- NOTE | 2019-03-08 15:05 | CHAPLAIN ---
Mirna was pleasant and easily engaged in a conversation. She told me about living in [facility] where she is part of a large family that has lived there for many years. She doesn't expect any visitors while she is here, but expects to discharged later today.
--- NOTE | 2019-03-08 15:16 | W.PM.DS.N ---
Date of service: 03/08/19 Time of Service: 15:16 DS: Diagnosis Discharge Diagnosis (1) Status post total right knee replacement: Status: Acute Discharge Plan Disposition Patient Disposition: HOME W/HOME HEALTH SERVICE Condition: Good Discharge Details Reason For Visit: POST-OP R TOTAL KNEE Admit Date/Time: 03/06/19 05:56 Admit Provider: Tristan Brandon Attending Provider: Tristan Brandon Primary Care Provider: Daryl Key [place] Hospital Course Hospital Course: She was admitted on day of surgery for postop pain control and mobilization. She remained afebrile throughout her hospital course. Her postop pain was well managed with the multimodal pain control. She progressed rapidly with immobilization. She was independent with transfers ambulation on the floor and ambulation on stairs by 03/08/2019. By 03/08/2019 her wound was clean and dry with minimal swelling. She was flexing her knee beyond 90 degrees. It was felt that she had completed acute care goals and was ready for home discharge. She will discharge home with home health PT follow-up. Home Meds and New Rx's Prescriptions: New ibuprofen 600 mg tablet 600 mg PO TID Qty: 30 RF: 0 hydrocodone-acetaminophen 5-325 mg tablet 1 tab PO Q6H PRN (Reason: pain, moderate) Qty: 20 RF: 0 Continued sumatriptan succinate 100 mg Tablet 100 mg PO ONCE PRNRF: 0 topiramate [Topamax] 25 mg Tablet 25 mg PO BID RF: 0 amlodipine 5 mg Tablet 5 mg PO DAILY RF: 0 hydrocodone-acetaminophen [[place]] 10-325 mg Tablet 1 tab PO TID RF: 0 pantoprazole [Protonix] 40 mg Tablet,Delayed Release (Dr/Ec) 40 mg PO DAILY RF: 0 lisinopril 10 mg Tablet 10 mg PO DAILY RF: 0 metoprolol tartrate 50 mg Tablet 50 mg PO DAILY RF: 0 docusate sodium [Colace] 100 mg Capsule 100 mg PO DAILY RF: 0 budesonide 0.5 mg/2 mL Suspension For Nebulization 0.5 mg INHALATION DAILY PRNRF: 0 estradiol [Estrace] 0.01 % (0.1 mg/gram) Cream 1 g VAGINAL .3 TIMES A WEEK RF: 0 albuterol sulfate [Ventolin HFA] 90 mcg/actuation Hfa Aerosol Inhaler 2 puff INHALATION .Q4-6H PRN PRNRF: 0 rosuvastatin [Crestor] 40 mg Tablet 40 mg PO HS RF: 0 Basaglar KwikPen U-100 Insulin 100 unit/mL (3 mL) Insulin Pen 22 unit SUBCUT HS RF: 0 Tradjenta 5 mg Tablet 5 mg PO HS RF: 0 Discharge Instructions Additional Instructions: Elevate R leg when sitting. Walk every day as much as your pain allows. Use walker, crutches or cand as long as you limp. Wear long elastic stocking on R only during daytime for next 2 weeks. Leave off at night to sleep. May shower tomorrow. Leave dressing on R knee alone. Let it fall off by itself. Apply cryocuff to R knee 4 times/day for 1 hour each time. Home Health physical therapy on Wednesday. Until they come, do the exercises that physical therapy gave you every day. Follow up in 's office in 2 weeks. Activity:: Activity as Tolerated Equipment/Supplies:: Walker Diet:: As Tolerated Discharge Orders Discharge Orders: Discharge Order (Routine); Ordered 03/08/19 Ordered By: Tristan Brandon DS: Data Vitals/I&O Vitals and I&O: Vital Signs Temperature 37.3 C 03/08/19 11:37 Temperature Source Tympanic 03/08/19 11:37 Pulse 72 03/08/19 11:37 Pulse Rhythm Regular 03/08/19 09:30 Respiratory Rate 16 03/08/19 11:37 Respiratory Effort Non-Labored 03/08/19 09:30 Respiratory Depth Normal 03/08/19 09:30 Respiratory Pattern Normal 03/08/19 09:30 Blood Pressure 126/75 03/08/19 11:37 Pulse Oximetry 99 03/08/19 11:37 Respiratory End-tidal CO2 34 03/06/19 10:44 Oxygen Delivery Method Room Air 03/08/19 11:37 Oxygen Flow Rate 0 03/08/19 11:37 Pain Level 0 03/08/19 13:20 Comment 03/07/19 03:38 Intake & Output 03/07/19 03/08/19 03/08/19 23:59 11:59 23:59 Intake Total 809.333 / 3086.000 480 / 720 240 / 720 Output Total 1400 / 3050 Balance -590.667 / 36.000 480 / 720 240 / 720 Intake: IV 89.333 / 1526.000 Oral 720 / 1560 480 / 720 240 / 720 Output: Urine 1400 / 3050 Other: Urine Color Yellow Pale Yellow Urine Appearance Clear Clear Urine Odor None None Comment Voids x2 post blanchard removal. Stool Size Moderate Stool Characteristics Formed Brown Voiding Methods Toilet Toilet Labs on day of discharge: Labs from last 24 hours 03/08/19 06:17 WBC 10.31 RBC 3.37 L Hgb 9.4 L Hct 30.1 L MCV 89.3 MCH 27.9 MCHC 31.2 L RDW 15.6 H Plt Count 142 MPV 12.3 H PFSH Social History Smoking/Tobacco Use Status: Never Alcohol Intake: never Drug use: Never
--- NOTE | 2019-03-08 15:27 | PDOC.CMDIS ---
- If Service Date Differs Date of service: 03/08/19 Time of Service: 15:27 LACE Index Scoring Tool - Questions: Length of Stay (in days): 2 Acuity (Admit via E.D.?): No Comorbidities: Previous M.I., Diabetes w/o Complication, Any Tumor, Liver or Renal Disease E.D. Visits: 0 - Answers: Total Score: 7 Risk of Readmission: Low Risk Care Management Discharge Reason for Hospitalization: Right total knee arthroplasty Discharge Plan: Mirna will be discharged home with new home health services of PT. She will be transported via private vehicle by her boyfriend Wilfredo. She will follow up with her surgeon and discharge plan of care. Patient/Family Education Needs: Discharge plan, limitations, follow up plan of care, Ask Me Three.
--- NOTE | 2019-03-08 15:30 | PDOC.HHF2F ---
1. Encounter Date and Reason I certify that JOEL GARCIA was seen by Tristan Brandon MD on 03/08/19 and that I had a [id number] encounter with this patient that meets the physician face to face encounter requirements. 2. Clinical Findings Supporting Skilled Need and Homebound Status I certify that home health services are medically necessary, include either intermittent prison and/or physical/speech therapy, and that this patient is homebound in that absences from the home require considerable and taxing effort and are infrequent or of short duration, or are attributable to the need to receive medical care. [X] (a) Attached documentation from encounter provides clinical findings supporting skilled need and homebound status (including what assistance patient requires to leave the home). The encounter with the patient was in whole, or in part, for the following medical condition, which is the primary reason for home health care: POST-OP R TOTAL KNEE Retirement: Physical Therapy:Had R total knee replacement on 03/06/19. Can't drive. Ambulation limited due to surgery. Is homeboiund. Speech Therapy: Homebound: 3. Certification and Authentication I certify that I composed the above information based on my clinical judgement relating to this patient's medical condition and, if applicable, clinical findings communicated to me by the NPP or inpatient physician who performed the Home Health Referral. All further orders will be obtained through (Community Based Physician - PCP)
--- NOTE | 2019-03-08 15:33 | HHF2F_ITS ---
1. Encounter Date and Reason I certify that JOEL GARCIA was seen by Tristan Brandon MD on 03/08/19 and that I had a [id number] encounter with this patient that meets the physician face to face encounter requirements. 2. Clinical Findings Supporting Skilled Need and Homebound Status I certify that home health services are medically necessary, include either intermittent halfway and/or physical/speech therapy, and that this patient is homebound in that absences from the home require considerable and taxing effort and are infrequent or of short duration, or are attributable to the need to receive medical care. [X] (a) Attached documentation from encounter provides clinical findings supporting skilled need and homebound status (including what assistance patient requires to leave the home). 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 Can't drive. Ambulation limited due to surgery. Is homeboiund. Speech Therapy: Homebound: 3. Certification and Authentication I certify that I composed the above information based on my clinical judgement relating to this patient's medical condition and, if applicable, clinical findings communicated to me by the NPP or inpatient physician who performed the Home Health Referral. All further orders will be obtained through (Community Based Physician - PCP)
== END 2019-03-08 16:09 | disposition home health service (06) | DRG 470 ==
LOC: PDS 05:57 → MS 10:48
PROVIDERS: Admitting Provider Orthopaedic Surgery; PCP Internal Medicine; Visit Provider Orthopaedic Surgery
PROC: 0SRC0J9 Replacement of Right Knee Joint with Synthetic Substitute, Cemented, Open Approach (ICD-10-PCS; CPT 27447; principal; 2019-03-06 07:30)
DX: M17.11 Unilateral primary osteoarthritis, right knee (principal); Z96.651 Presence of right artificial knee joint; M21.161 Varus deformity, not elsewhere classified, right knee; G89.18 Other acute postprocedural pain; E11.22 Type 2 diabetes mellitus with diabetic chronic kidney disease; I12.9 Hypertensive chronic kidney disease with stage 1 through stage 4 chronic kidney disease, or unspecified chronic kidney disease; N18.9 Chronic kidney disease, unspecified; E78.5 Hyperlipidemia, unspecified
CPT/HCPCS: 27447; 36415; 76942; 85027; 97110; 97162; 97530; NC; 73560; J0690; J1650; J1885; J2250; J2405; J3010; L1830

== ENCOUNTER 2019-11-07 13:36 | Outpatient (CLI) | payer MEDICAID, SELFPAY ==
--- NOTE | 2019-11-07 12:26 | DI.RAD_ITS ---
EXAM: XR WRIST RT COMPLETE INDICATION: right wrist pain. COMPARISON: No exams were available for comparison TECHNIQUE: 2D digital imaging was performed. FINDINGS: There has been resection of the diaphysis of the distal ulna. There is arthrodesis of the distal rad ial ulnar joint. No acute fracture or dislocation is present. The soft tissues are unremarkable.
--- NOTE | 2019-11-07 12:30 | DI.RAD_ITS ---
EXAM: XR SHOULDER RT COMPLETE 2+V INDICATION: fall; right shoulder pain. COMPARISON: No exams were available for comparison TECHNIQUE: 2D digital imaging was performed. FINDINGS: There is an orthopedic anchor in the humeral head. There are degenerative changes seen at the acromi oclavicular joint. There is elevation of the humeral head, which may reflect chronic rotator cuff te ar. Tiny densities are seen at the lateral aspect of the acromion, which appear old. No acute fract ure or dislocation is seen. Soft tissues are unremarkable. IMPRESSION: Postsurgical changes in the right shoulder. Degenerative changes of the right shoulder.
== END 2019-11-07 13:56 ==
PROVIDERS: PCP Internal Medicine; Visit Provider Physician Assistant
DX: M25.511 Pain in right shoulder (principal); M25.531 Pain in right wrist; M19.011 Primary osteoarthritis, right shoulder; Z98.1 Arthrodesis status; Z91.81 History of falling
CPT/HCPCS: 73030; 73110